=== PATIENT | female | born 2000 | race Two or more races ===

== ENCOUNTER 2022-06-19 12:35 | Outpatient (CLI) | payer OTHER | END 2022-06-19 13:53 | disposition home or self-care (01) | LOC: PRENATAL 12:35 | PROVIDERS: ATTEND Obstetrics & Gynecology Maternal & Fetal Medicine | DX: O36.80X0 Pregnancy with inconclusive fetal viability, not applicable or unspecified (principal); O28.3 Abnormal ultrasonic finding on antenatal screening of mother; Z88.0 Allergy status to penicillin; Z3A.12 12 weeks gestation of pregnancy ==

== ENCOUNTER 2022-07-18 10:56 | Emergency (ER) | payer OTHER ==
[~2022-07-18] VITALS: Ht 160 cm; Wt 59.4 kg
[2022-07-18] MEDS ORDERED: PRENATAL + DHA1 EAC1 PO (11:22)
== END 2022-07-18 16:59 | disposition home or self-care (01) ==
LOC: ER 10:56
DX: O26.892 Other specified pregnancy related conditions, second trimester (principal); Z3A.17 17 weeks gestation of pregnancy; Z88.0 Allergy status to penicillin

== ENCOUNTER 2022-08-07 13:39 | Emergency (ER) | payer OTHER ==
[~2022-08-07] VITALS: Ht 160 cm; Wt 59.9 kg
[~2022-08-07 13:39] MED LIST: PRENATAL + DHA1 EAC1 PO
== END 2022-08-07 18:41 | disposition home or self-care (01) ==
LOC: ER 13:39
DX: O20.8 Other hemorrhage in early pregnancy (principal); Z3A.20 20 weeks gestation of pregnancy

== ENCOUNTER 2022-09-12 15:42 | Outpatient (CLI) | payer OTHER ==
[~2022-09-12 15:42] MED LIST changes: +PROMETRIUM200 MG PO
== END 2022-09-12 16:43 | disposition home or self-care (01) ==
LOC: PRENATAL 15:42
PROVIDERS: ATTEND Obstetrics & Gynecology Maternal & Fetal Medicine
DX: O26.849 Uterine size-date discrepancy, unspecified trimester (principal); O28.3 Abnormal ultrasonic finding on antenatal screening of mother; O09.219 Supervision of pregnancy with history of pre-term labor, unspecified trimester; O26.879 Cervical shortening, unspecified trimester; Z88.1 Allergy status to other antibiotic agents; Z3A.24 24 weeks gestation of pregnancy

== ENCOUNTER 2022-11-09 09:36 | Outpatient (CLI) | payer OTHER | END 2022-11-09 11:01 | disposition home or self-care (01) | LOC: PRENATAL 09:36 | PROVIDERS: ATTEND Obstetrics & Gynecology Maternal & Fetal Medicine | DX: O26.849 Uterine size-date discrepancy, unspecified trimester (principal); O09.219 Supervision of pregnancy with history of pre-term labor, unspecified trimester; O36.8199 Decreased fetal movements, unspecified trimester, other fetus; O26.879 Cervical shortening, unspecified trimester; Z3A.32 32 weeks gestation of pregnancy ==

== ENCOUNTER 2022-11-30 20:09 | Outpatient (CLI) | payer OTHER | END 2022-12-02 20:09 | disposition home or self-care (01) | LOC: OBS/DEL 20:09 | PROVIDERS: ATTEND Obstetrics & Gynecology | DX: O26.893 Other specified pregnancy related conditions, third trimester (principal); Z3A.36 36 weeks gestation of pregnancy; H53.8 Other visual disturbances; R51.9 Headache, unspecified ==

== ENCOUNTER 2022-12-07 11:22 | Outpatient (CLI) | payer OTHER | END 2022-12-07 13:15 | disposition home or self-care (01) | LOC: PRENATAL 11:22 | PROVIDERS: ATTEND Obstetrics & Gynecology Maternal & Fetal Medicine | DX: O26.849 Uterine size-date discrepancy, unspecified trimester (principal); O35.9XX0 Maternal care for (suspected) fetal abnormality and damage, unspecified, not applicable or unspecified; O36.8199 Decreased fetal movements, unspecified trimester, other fetus; Z3A.36 36 weeks gestation of pregnancy ==

== ENCOUNTER 2022-12-09 14:45 | Inpatient (IN) | payer OTHER ==
[~2022-12-09] VITALS: Ht 160 cm; Wt 67.1 kg
== END 2022-12-11 12:24 | disposition home or self-care (01) | DRG 807 ==
LOC: OB/GYN 14:45 → LDR 14:45 → OB/GYN 18:38
PROVIDERS: ADMIT Obstetrics & Gynecology; ATTEND Obstetrics & Gynecology
PROC: 10E0XZZ Delivery of Products of Conception, External Approach (ICD-10-PCS; principal; 2022-12-09)
PROC: 0HQ9XZZ Repair Perineum Skin, External Approach (ICD-10-PCS; 2022-12-09)
PROC: 4A1HXCZ Monitoring of Products of Conception, Cardiac Rate, External Approach (ICD-10-PCS; 2022-12-09)
DX: O70.0 First degree perineal laceration during delivery (principal); Z37.0 Single live birth; Z3A.38 38 weeks gestation of pregnancy; Z20.822 Contact with and (suspected) exposure to COVID-19